=== PATIENT | male | born 1955 | race American Indian/Alaskan Native ===

== ENCOUNTER 2017-04-10 01:09 | Emergency (ER) | payer MEDICARE ==
[2017-04-10 02:50] LABS: Basophils % (Auto) 0.9 % (0.0-1.8); Eosinophils % (Auto) 0.7 % (0.0-4.3); Hematocrit 40.5 % (35.5-45.6); Hemoglobin 13.8 gm/dl (11.8-15.2); Mean Corpuscular HGB Conc 34 % (32-34); Mean Corpuscular Hemoglobin 30 pg (28-32); Mean Corpuscular Volume 88 fl (84-94); Platelet Count 215 K/mm3 (140-440); Red Blood Count 4.58 M/mm3 (3.65-5.03); Red Cell Distribution Width 15.1 % (13.2-15.2); White Blood Count 6.3 K/mm3 (4.5-11.0)
[2017-04-10 03:07] LABS: Alanine Aminotransferase 12 units/L (7-56); Albumin 4.2 g/dL (3.9-5); Albumin/Globulin Ratio 1.2 %; Alkaline Phosphatase 76 units/L (35-129); Anion Gap 17 mmol/L; BUN/Creatinine Ratio 14.54; Blood Urea Nitrogen 16 mg/dL (9-20); Calcium 9.4 mg/dL (8.4-10.2); Carbon Dioxide 25 mmol/L (22-30); Chloride 98.8 mmol/L (98-107); Glucose 107 mg/dL (75-100); Potassium 4.1 mmol/L (3.6-5.0); Sodium 137 mmol/L (137-145); Total Protein 7.6 g/dL (6.3-8.2)
[2017-04-10 09:27] LABS: Bilirubin,Urine NEG (Negative); Blood,Urine MOD (Negative); Ketones,Urine NEG (Negative); Leukocyte Esterase,Urine NEG (Negative); Nitrite,Urine NEG (Negative); Protein,Urine <15 mg/dL mg/dL (Negative); Urobilinogen,Urine < 2.0 mg/dL (<2.0)
[2017-04-10 09:47] LABS: Urine Drugs of Abuse Note Disclamer
[2017-04-10 10:00] LABS: Bacteria,Urine 1+ /HPF (Negative)
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
[2017-04-10] MEDS ORDERED: ATIVAN IM PRN (13:49)
[2017-04-10] MEDS ORDERED: HALDOL IM PRN (13:49)
[2017-04-10] MEDS ORDERED: BENADRYL IM PRN (13:49)
[2017-04-10] MEDS ORDERED: BACTRIM DS PO SCH (14:00)
[2017-04-10 16:55] VITALS: BP 146/96
== END 2017-04-10 20:39 ==
LOC: ED 01:09
DX: F20.9 Schizophrenia, unspecified (principal); N39.0 Urinary tract infection, site not specified; F19.10 Other psychoactive substance abuse, uncomplicated; I10 Essential (primary) hypertension
CPT/HCPCS: 36415; 80053; 80307; 81001; 84443; 85025; 99285

== ENCOUNTER 2017-11-27 02:37 | Emergency (ER) | payer MEDICARE ==
[2017-11-27 03:32] LABS: Basophils % (Auto) 0.8 % (0.0-1.8); Eosinophils # (Auto) 0.1 K/mm3 (0.0-0.4); Eosinophils % (Auto) 1.3 % (0.0-4.3); Hematocrit 40.2 % (35.5-45.6); Hemoglobin 13.8 gm/dl (11.8-15.2); Lymphocytes % (Auto) 39.3 % (13.4-35.0); Mean Corpuscular HGB Conc 34 % (32-34); Mean Corpuscular Hemoglobin 31 pg (28-32); Mean Corpuscular Volume 89 fl (84-94); Monocytes # (Auto) 0.5 K/mm3 (0.0-0.8); Monocytes % (Auto) 9.4 % (0.0-7.3); Platelet Count 201 K/mm3 (140-440)
[2017-11-27 04:06] LABS: Bilirubin,Urine NEG (Negative); Blood,Urine SM (Negative); Color,Urine Yellow (Yellow); Protein,Urine <15 mg/dL mg/dL (Negative)
[2017-11-27 04:20] LABS: WBC,Urine < 1.0 /HPF (0.0-6.0)
[2017-11-27 04:20] LABS: Amphetamine Screen,Urine PRESUMPTIVE NEGATIVE; Benzodiazepines Screen,Urine PRESUMPTIVE NEGATIVE; Cannabinoid Screen,Urine PRESUMPTIVE NEGATIVE; Methadone Screen,Urine PRESUMPTIVE NEGATIVE; Opiate Screen,Urine PRESUMPTIVE NEGATIVE
[2017-11-27 04:27] LABS: BUN/Creatinine Ratio 18; Blood Urea Nitrogen 16 mg/dL (9-20); Hemolysis Index 2
[2017-11-27 04:40] LABS: Cocaine Screen,Urine PRESUMPTIVE POSITIVE
--- NOTE | 2017-11-27 10:49 | Emergency Department Report ---
ED Psych HPI - General Chief Complaint: Psych Stated Complaint: MH Time Seen by Provider: 11/27/17 10:38 Source: patient, EMS Mode of arrival: Ambulatory - History of Present Illness Initial Comments: Patient is 62 years old male history of schizophrenia and hypertension presented to the ER for evaluation of hearing voices asking him to kill himself and do bad things like stealing. Patient denied any visual hallucination and homicidal ideation. Patient stated that last time he took his medication was a few months ago. He also stated that he has been using cocaine marijuana and alcohol. MD Complaint: suicidal ideation -: days(s) Associated Psychiatric Symptoms: suicidal ideation, racing thoughts, auditory hallucinations History of same: Yes Quality: constant Associated Symptoms: denies other symptoms Treatments Prior to Arrival: none If Self Harm: admits thoughts of - Related Data Previous Rx's Medication Instructions Recorded Last Taken Type Sulfamethoxazole/Trimethoprim 1 each PO BID #20 tablet 04/10/17 Unknown Rx [Bactrim DS TAB] Allergies Allergy/AdvReac Type Severity Reaction Status Date / Time Unable to Assess Allergy Unverified 08/23/16 13:07 ED Review of Systems ROS: Stated complaint: MH Other details as noted in HPI Comment: All other systems reviewed and negative Constitutional: denies: chills, fever Respiratory: denies: cough, orthopnea, shortness of breath, SOB with exertion Cardiovascular: denies: chest pain, palpitations, dyspnea on exertion Gastrointestinal: denies: abdominal pain, nausea, vomiting, diarrhea Musculoskeletal: denies: back pain Neurological: denies: headache, weakness, numbness, paresthesias ED Past Medical Hx - Past Medical History Previous Medical History?: Yes Hx Hypertension: Yes Hx Psychiatric Treatment: Yes (schziophrenia) - Surgical History Past Surgical History?: No - Social History Smoking Status: Current Every Day Smoker Substance Use Type: None - Medications Home Medications: Home Medications Medication Instructions Recorded Confirmed Last Taken Type Sulfamethoxazole/Trimethoprim 1 each PO BID #20 tablet 04/10/17 Unknown Rx [Bactrim DS TAB] ED Physical Exam - General Limitations: No Limitations General appearance: alert, in no apparent distress - Head Head exam: Present: atraumatic, normocephalic, normal inspection - Eye Eye exam: Present: normal appearance, PERRL Pupils: Present: normal accommodation - ENT ENT exam: Present: normal exam, normal orophraynx, mucous membranes moist - Neck Neck exam: Present: normal inspection, full ROM. Absent: tenderness, meningismus, lymphadenopathy - Respiratory Respiratory exam: Present: normal lung sounds bilaterally. Absent: respiratory distress, wheezes, rales, rhonchi, stridor, chest wall tenderness, accessory muscle use, decreased breath sounds, prolonged expiratory - Cardiovascular Cardiovascular Exam: Present: regular rate, normal rhythm, normal heart sounds - GI/Abdominal GI/Abdominal exam: Present: soft, normal bowel sounds. Absent: distended, tenderness, guarding, rebound, rigid, organomegaly, mass, bruit, pulsatile mass , hernia - Extremities Exam Extremities exam: Present: normal inspection, full ROM, normal capillary refill - Back Exam Back exam: Present: normal inspection, full ROM. Absent: tenderness, CVA tenderness (R), CVA tenderness (L), muscle spasm, paraspinal tenderness - Neurological Exam Neurological exam: Present: alert, oriented X3, CN II-XII intact, normal gait - Psychiatric Psychiatric exam: Present: normal mood, suicidal ideation - Skin Skin exam: Present: warm, intact, normal color. Absent: cyanosis ED Course Vital Signs 11/27/17 02:48 Temperature 97.4 F L Pulse Rate 59 L Respiratory 18 Rate Blood Pressure 170/103 O2 Sat by Pulse 98 Oximetry ED Medical Decision Making - Lab Data Result diagrams: 11/27/17 02:56 11/27/17 02:56 Critical care attestation.: If time is entered above; I have spent that time in minutes in the direct care of this critically ill patient, excluding procedure time. ED Disposition Clinical Impression: Acute psychosis, Suicidal ideation Disposition: DC/TX-65 PSY HOSP/PSY UNIT Is pt being admited?: No Condition: Stable Referrals: PRIMARY CARE, [Primary Care Provider] - 3-5 Days
[2017-11-28 08:41] VITALS: BP 142/91
--- NOTE | 2017-11-28 12:39 | Consultation ---
History of Present Illness - Reason for Consult Consult date: 11/28/17 Reason for consult: Mental Health Evaluation Requesting physician: EV NELSON - Chief Complaint Chief complaint: "The voices are to much" - History of Present Psychiatric Illness 62 years old male history of schizophrenia and hypertension presented to the ER for evaluation of hearing voices. Today the patient is calm and cooperative during the assessment. He stated hearing voices telling him all types of "things." He stated that they were telling him to kill himself yesterday, but denies being suicidal when asked. He stated that the voices kept him from sleeping last night. He stated that he has a hx of schizophrenia and receive the monthly Haldol injection from [facility]. He stated that he feared that something would happen to him yesterday, so he came to the hospital. He denies SI/HI's and VH's. He denies erratic sleep and a poor appetite. He admitted to using cocaine often. He denies excessive alcohol consumption (etoh). Medications and Allergies Allergies Allergy/AdvReac Type Severity Reaction Status Date / Time haloperidol [From Haldol] AdvReac Dizziness Verified 11/27/17 19:13 Home Medications Medication Instructions Recorded Confirmed Last Taken Type Sulfamethoxazole/Trimethoprim 1 each PO BID #20 tablet 04/10/17 Unknown Rx [Bactrim DS TAB] Past psychiatric history - Past Medical History Past Medical History: hypertension Past Surgical History: No surgical history - past Psychiatric treatment and history Psych: Schizophrenia psychiatric treatment history: Multiple inpatient psy settings. He denies a fam psy hx. - Social History Social history: lives with family Mental Status Exam - Vital signs Last Vital Signs Temp 98.7 F 11/28/17 08:40 Pulse 100 H 11/28/17 08:40 Resp 16 11/28/17 08:40 BP 142/91 11/28/17 08:40 Pulse Ox 95 11/28/17 08:40 - Exam Narrative exam: MSE: Appearance: calm, cooperative, disheveled Behavior: regular eye contact Speech: regular rate and tone Mood: "fine" Affect: congruent to mood Thought Process: circumstantial Thought Content: denies SI/HI's and VH's, paranoia Motor Activity: lying in bed Cognition: A/O x3 Insight: variable Judgment: variable Results Result Diagrams: 11/27/17 02:56 11/27/17 02:56 All other labs normal. Assessment and Plan Assessment and plan: Impression: Hx of Schizophrenia per the patient. Substance Use DO (cocaine). Today the patient is calm and cooperative during the assessment. DDx; R/O Bipolar DO, R/O Schizoaffective DO, R/O Substance Induced Psy DO Recommendation/Plan: Continue 1013 with placement to [facility] today.
== END 2017-11-28 14:07 ==
LOC: EEVIPCON 02:37 → ED 02:37
DX: F20.9 Schizophrenia, unspecified (principal); I10 Essential (primary) hypertension; F17.200 Nicotine dependence, unspecified, uncomplicated; Z88.8 Allergy status to other drugs, medicaments and biological substances; Z79.899 Other long term (current) drug therapy
CPT/HCPCS: 36415; 80048; 80307; 81001; 85025; 99285; G0480; 80320; 99284

== ENCOUNTER 2018-01-31 21:55 | Emergency (ER) | payer MEDICARE ==
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
[2018-01-31 23:22] LABS: Bilirubin,Urine NEG (Negative); Blood,Urine NEG (Negative); Calcium Oxalate Crystals,Urine 1+; Color,Urine Yellow (Yellow); Mucus,Urine 3+ /HPF
[2018-01-31 23:32] LABS: Amphetamine Screen,Urine PRESUMPTIVE NEGATIVE; Benzodiazepines Screen,Urine PRESUMPTIVE NEGATIVE; Cannabinoid Screen,Urine PRESUMPTIVE NEGATIVE; Methadone Screen,Urine PRESUMPTIVE NEGATIVE; Opiate Screen,Urine PRESUMPTIVE NEGATIVE
[2018-01-31 23:34] LABS: Basophils % (Auto) 0.8 % (0.0-1.8); Eosinophils # (Auto) 0.1 K/mm3 (0.0-0.4); Eosinophils % (Auto) 1.4 % (0.0-4.3); Hematocrit 37.3 % (35.5-45.6); Hemoglobin 12.4 gm/dl (11.8-15.2); Lymphocytes # (Auto) 1.8 K/mm3 (1.2-5.4); Lymphocytes % (Auto) 45.7 % (13.4-35.0); Mean Corpuscular HGB Conc 33 % (32-34); Mean Corpuscular Hemoglobin 31 pg (28-32); Mean Corpuscular Volume 92 fl (84-94); Monocytes # (Auto) 0.4 K/mm3 (0.0-0.8); Monocytes % (Auto) 11.2 % (0.0-7.3); Platelet Count 204 K/mm3 (140-440); Red Blood Count 4.07 M/mm3 (3.65-5.03); Red Cell Distribution Width 15.7 % (13.2-15.2)
[2018-01-31 23:55] LABS: Alanine Aminotransferase 10 units/L (7-56); Albumin 3.7 g/dL (3.9-5); BUN/Creatinine Ratio 17; Blood Urea Nitrogen 17 mg/dL (9-20); Calcium 8.8 mg/dL (8.4-10.2); Hemolysis Index 7
[2018-02-01 00:04] LABS: Cocaine Screen,Urine PRESUMPTIVE POSITIVE
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
[2018-02-01 15:32] VITALS: BP 143/83
== END 2018-02-01 14:30 ==
LOC: ED 21:55 → EEVIPCON 21:55 → ED 02-01 14:30
DX: F20.9 Schizophrenia, unspecified (principal); I10 Essential (primary) hypertension; F17.200 Nicotine dependence, unspecified, uncomplicated; Z88.8 Allergy status to other drugs, medicaments and biological substances; Z79.899 Other long term (current) drug therapy
CPT/HCPCS: 36415; 80053; 80307; 81001; 85025; 99285; G0480; 80320

== ENCOUNTER 2018-10-30 16:14 | Emergency (ER) | payer MEDICARE ==
--- NOTE | 2018-10-30 18:42 | Emergency Department Report ---
Blank Doc - Documentation Documentation: 63 y.o. male presents to ED for medication refills. Incarcerated for 7 months and off medication for 1 month. denies new symptoms, SI/HI Hx of schizophrenia and HTN PLAN: [facility] Fast track for evaluation.
[2018-10-30 19:11] LABS: Basophils # (Auto) 0.1 K/mm3 (0.0-0.1); Eosinophils % (Auto) 0.5 % (0.0-4.3); Hematocrit 42.5 % (35.5-45.6); Hemoglobin 14.3 gm/dl (11.8-15.2); Lymphocytes # (Auto) 1.9 K/mm3 (1.2-5.4); Lymphocytes % (Auto) 34.5 % (13.4-35.0); Mean Corpuscular HGB Conc 34 % (32-34); Mean Corpuscular Volume 91 fl (84-94); Monocytes # (Auto) 0.6 K/mm3 (0.0-0.8); Monocytes % (Auto) 10.2 % (0.0-7.3); Platelet Count 249 K/mm3 (140-440); Red Blood Count 4.67 M/mm3 (3.65-5.03); Red Cell Distribution Width 16.8 % (13.2-15.2)
--- NOTE | 2018-10-31 01:46 | Emergency Department Report ---
ED Medical Clearance HPI - General Chief complaint: Medical Clearance Stated complaint: OUT OF MEDICATIONS Time Seen by Provider: 10/30/18 18:34 Source: patient, EMS Mode of arrival: Ambulatory - History of Present Illness Initial comments: This Is a 62-year-old gentleman who has a history of psychosis, hypertension, currently takes Norvasc, 5 mg daily, clonidine, 0.1 mg, Haldol, Prozac, who presents tonight for medication refills bp at this time is 145/98 pt denies symptoms no headache no dizziness no lightheadedness no n/v no cp no sob no suicidality no homicicality , pt is a/ox 3 ambulatory with steady gait. pt seen in ed on 09/11/2019 for same, but has not follow up with pcp to this point. Onset/Timin -: week(s) Reason for Medical Clearance: psychiatric condition (hx schizophrenia ) Alledged Intoxication: No Compliant with Home Medications: No Traumatic Symptoms: denies traumatic injury Treatments Prior to Arrival: none Home medications: Home Medications Medication Instructions Recorded Confirmed Last Taken Benztropine [Cogentin] 0.5 mg PO BID 09/12/18 09/12/18 09/12/18 09:00 FLUoxetine HCL [Prozac] 20 mg PO QAM 09/12/18 09/12/18 09/12/18 09:00 Norvasc 5 mg PO QAM 09/12/18 09/12/18 09/12/18 09:00 cloNIDine [Catapres] 0.1 mg PO PRN PRN 09/12/18 09/12/18 09/12/18 12:50 Previous Rx's Medication Instructions Recorded Last Taken Type amLODIPine [Norvasc] 5 mg PO DAILY #3 tab 10/31/18 Unknown Rx Allergies/Adverse reactions: Allergies Allergy/AdvReac Type Severity Reaction Status Date / Time haloperidol [From Haldol] AdvReac Dizziness Verified 11/27/17 19:13 ED Review of Systems ROS: Stated complaint: OUT OF MEDICATIONS Other details as noted in HPI Constitutional: denies: chills, fever Eyes: denies: eye pain, eye discharge, vision change ENT: denies: ear pain, throat pain Respiratory: denies: cough, shortness of breath, wheezing Cardiovascular: denies: chest pain, palpitations Endocrine: no symptoms reported Gastrointestinal: denies: abdominal pain, nausea, diarrhea Genitourinary: denies: urgency, dysuria Musculoskeletal: denies: back pain, joint swelling, arthralgia Skin: denies: rash, lesions Neurological: denies: headache, weakness, paresthesias Psychiatric: denies: anxiety, depression Hematological/Lymphatic: denies: easy bleeding, easy bruising ED Past Medical Hx - Past Medical History Hx Hypertension: Yes Hx Psychiatric Treatment: Yes (schziophrenia) - Surgical History Past Surgical History?: No - Social History Smoking Status: Never Smoker Substance Use Type: Alcohol - Medications Home Medications: Home Medications Medication Instructions Recorded Confirmed Last Taken Type Benztropine [Cogentin] 0.5 mg PO BID 09/12/18 09/12/18 09/12/18 09:00 History FLUoxetine HCL [Prozac] 20 mg PO QAM 09/12/18 09/12/18 09/12/18 09:00 History Norvasc 5 mg PO QAM 09/12/18 09/12/18 09/12/18 09:00 History cloNIDine [Catapres] 0.1 mg PO PRN PRN 09/12/18 09/12/18 09/12/18 12:50 History amLODIPine [Norvasc] 5 mg PO DAILY #3 tab 10/31/18 Unknown Rx ED Physical Exam - General Limitations: No Limitations General appearance: alert, in no apparent distress - Head Head exam: Present: atraumatic, normocephalic - Eye Eye exam: Present: normal appearance - ENT ENT exam: Present: mucous membranes moist - Neck Neck exam: Present: normal inspection - Respiratory Respiratory exam: Present: normal lung sounds bilaterally. Absent: respiratory distress - Cardiovascular Cardiovascular Exam: Present: regular rate, normal rhythm. Absent: systolic murmur, diastolic murmur, rubs, gallop - GI/Abdominal GI/Abdominal exam: Present: soft, normal bowel sounds - Rectal Rectal exam: Present: deferred - Extremities Exam Extremities exam: Present: normal inspection - Back Exam Back exam: Present: normal inspection - Neurological Exam Neurological exam: Present: alert, oriented X3 - Psychiatric Psychiatric exam: Present: normal affect, normal mood. Absent: homicidal clarke ation, suicidal ideation - Skin Skin exam: Present: warm, dry, intact, normal color. Absent: rash ED Course Vital Signs 10/30/18 10/30/18 17:34 18:34 Temperature 98.1 F 98.1 F Pulse Rate 75 75 Respiratory 16 16 Rate Blood Pressure 145/98 Blood Pressure 145/98 [Left] O2 Sat by Pulse 100 96 Oximetry ED Medical Decision Making - Lab Data Result diagrams: 10/30/18 18:50 - Medical Decision Making This Is a 62-year-old gentleman who has a history of psychosis, hypertension, currently takes Norvasc, 5 mg daily, clonidine, 0.1 mg, Haldol, Prozac, who presents tonight for medication refills bp at this time is 145/98 pt denies symptoms no headache no dizziness no lightheadedness no n/v no cp no sob no suicidality no homicicality , pt is a/ox 3 ambulatory with steady gait. states he has not been able to see pcp or psychiatry, will refer to [facility] for pcp affiliation , and [facility] for Psych medication refills as he is asymptomatic today ED Disposition Clinical Impression: Medication refill Disposition: DC-01 TO HOME OR SELFCARE Is pt being admited?: No Does the pt Need Aspirin: No Condition: Stable Prescriptions: amLODIPine [Norvasc] 5 mg PO DAILY #3 tab Referrals: [facility] [Outside] - 24 Hours [facility] [Outside] - 24 Hours Forms: Work/School Release Form(ED) Time of Disposition: 01:56
[2018-10-31] MEDS ORDERED: NORVASC PO ONE (01:55)
[2018-10-31 02:20] VITALS: BP 158/111
== END 2018-10-31 02:36 | disposition home or self-care (01) ==
LOC: ED 16:14
DX: Z76.0 Encounter for issue of repeat prescription (principal); F20.9 Schizophrenia, unspecified; I10 Essential (primary) hypertension; Z88.8 Allergy status to other drugs, medicaments and biological substances
CPT/HCPCS: 36415; 85025

== ENCOUNTER 2019-08-12 22:57 | Emergency (ER) | payer MEDICARE ==
[2019-08-12 23:45] LABS: Basophils % (Auto) 0.7 % (0.0-1.8); Eosinophils % (Auto) 0.5 % (0.0-4.3); Hematocrit 39.3 % (35.5-45.6); Hemoglobin 13.5 gm/dl (11.8-15.2); Lymphocytes # (Auto) 1.5 K/mm3 (1.2-5.4); Lymphocytes % (Auto) 31.8 % (13.4-35.0); Mean Corpuscular HGB Conc 34 % (32-34); Mean Corpuscular Volume 91 fl (84-94); Monocytes # (Auto) 0.4 K/mm3 (0.0-0.8); Monocytes % (Auto) 9.6 % (0.0-7.3); Red Blood Count 4.34 M/mm3 (3.65-5.03); Red Cell Distribution Width 15.6 % (13.2-15.2)
[2019-08-13 00:01] LABS: Platelet Count 302 K/mm3 (140-440)
[2019-08-13 00:08] LABS: BUN/Creatinine Ratio 14; Blood Urea Nitrogen 11 mg/dL (9-20); Hemolysis Index 12
[2019-08-13] MEDS ORDERED: LORazepam 2 MG/ML VIAL IM PRN (01:24)
[2019-08-13] MEDS ORDERED: ZIPRASIDONE MESYLATE 20 MG VIAL IM PRN (01:24)
[2019-08-13] MEDS ORDERED: SODIUM CHLORIDE 0.9% 1000 ML 1,000 ML IV ONE (01:24)
[2019-08-13] MEDS ORDERED: SODIUM CHLORIDE 0.9% 1000 ML 2,000 ML IV ONE ×2 (01:24→02:01)
--- NOTE | 2019-08-13 01:25 | Emergency Department Report ---
ED Psych HPI - General Chief Complaint: Psych Stated Complaint: MH EVALUATION Time Seen by Provider: 08/13/19 00:41 Source: patient, family, RN notes reviewed Mode of arrival: Ambulatory Limitations: Other (the patient is disorganized and appears to be psychotic. The patient appears to be responding to internal stimuli) - History of Present Illness Initial Comments: This is a 63-year-old gentleman with a history of psychiatric disease and hypertension. He is brought to the hospital by his sister for psychiatric evaluation. The patient has reportedly been off of his haloperidol injectable medication for about 2 months as per his sister. She reports the patient has been missing around 2 weeks, and she's been looking for him constantly. She re ports that she found him wandering on the streets. She reports that he is speaking with a gravelly voice, which she typically does when he becomes psychotic. The patient denies physical pain. The patient lacks decision-making capacity at this time. As far as the sister knows, there is no history of trauma. Symptoms have been constant, and so far, do not have exacerbating or relieving factors that anyone is aware of, with the exception of the patient remain compliant with his psychiatric medications. His sister has reason to believe that the patient is using drugs. MD Complaint: other Quality: other Improves With: medication Worsens With: none Context: not taking psychiatric Associated Symptoms: denies other symptoms Treatments Prior to Arrival: other If Self Harm: other - Related Data Home Medications Medication Instructions Recorded Confirmed Last Taken Benztropine [Cogentin] 0.5 mg PO BID 09/12/18 08/13/19 09/12/18 09:00 FLUoxetine HCL [Prozac] 20 mg PO QAM 09/12/18 08/13/19 09/12/18 09:00 Norvasc 5 mg PO QAM 09/12/18 08/13/19 09/12/18 09:00 cloNIDine [Catapres] 0.1 mg PO PRN PRN 09/12/18 08/13/19 09/12/18 12:50 Previous Rx's Medication Instructions Recorded Last Taken Type amLODIPine 5 mg PO DAILY #3 tab 10/31/18 Unknown Rx Allergies Allergy/AdvReac Type Severity Reaction Status Date / Time haloperidol [From Haldol] AdvReac Dizziness Verified 11/27/17 19:13 ED Review of Systems ROS: Stated complaint: MH EVALUATION Other details as noted in HPI Comment: Unobtainable due to pts medical conditions ED Past Medical Hx - Past Medical History Hx Hypertension: Yes Hx Psychiatric Treatment: Yes (paranoid schizophrenia) - Surgical History Past Surgical History?: No - Social History Smoking Status: Never Smoker - Medications Home Medications: Home Medications Medication Instructions Recorded Confirmed Last Taken Type Benztropine [Cogentin] 0.5 mg PO BID 09/12/18 08/13/19 09/12/18 09:00 History FLUoxetine HCL [Prozac] 20 mg PO QAM 09/12/18 08/13/19 09/12/18 09:00 History Norvasc 5 mg PO QAM 09/12/18 08/13/19 09/12/18 09:00 History cloNIDine [Catapres] 0.1 mg PO PRN PRN 09/12/18 08/13/19 09/12/18 12:50 History amLODIPine 5 mg PO DAILY #3 tab 10/31/18 08/13/19 Unknown Rx ED Physical Exam - General Limitations: Other (the patient is psychotic and a poor historian) General appearance: in no apparent distress, anxious - Head Head exam: Present: atraumatic, normocephalic - Eye Eye exam: Present: normal appearance, PERRL, EOMI. Absent: nystagmus - ENT ENT exam: Present: normal exam, normal orophraynx, mucous membranes moist, normal external ear exam - Neck Neck exam: Present: normal inspection, full ROM. Absent: tenderness, meningismus - Respiratory Respiratory exam: Present: normal lung sounds bilaterally. Absent: respiratory distress - Cardiovascular Cardiovascular Exam: Present: regular rate, normal rhythm, normal heart sounds. Absent: bradycardia, tachycardia, irregular rhythm, systolic murmur, diastolic murmur, rubs, gallop - GI/Abdominal GI/Abdominal exam: Present: soft. Absent: distended, tenderness, guarding, rebound, rigid, pulsatile mass - Rectal Rectal exam: Present: deferred - Extremities Exam Extremities exam: Present: normal inspection, full ROM, other (2+ pulses noted in the bilateral upper, lower extremities. There is no long bone tenderness. Musculoskeletal compartments are soft. The pelvis is stable.). Absent: pedal edema, calf tenderness - Back Exam Back exam: Present: normal inspection, full ROM. Absent: tenderness, CVA tenderness (R), CVA tenderness (L), paraspinal tenderness, vertebral tenderness - Neurological Exam Neurological exam: Present: alert (patient alert to name and year. Patient is disorganized.), normal gait, other (there is no facial droop. The tongue is mid line. Extraocular movements are intact bilaterally. Patient speaking in full complete sentences. Shoulder shrug is intact bilaterally. Hearing is grossly intact bilaterally. Visual acuity intact to finger counting and color perception at a close distance. 5/5 strength 4 extremities. Sensation intact to light touch in 4 extremities.). Absent: motor sensory deficit - Psychiatric Psychiatric exam: Present: agitated - Skin Skin exam: Present: warm, dry, intact, normal color. Absent: rash ED Course Vital Signs 08/12/19 08/12/19 08/13/19 23:01 23:03 00:40 Temperature 97.7 F 97.7 F 97.5 F L Pulse Rate 88 73 91 H Respiratory 18 18 18 Rate Blood Pressure 172/108 172/108 Blood Pressure 152/110 [Left] O2 Sat by Pulse 100 99 99 Oximetry - Reevaluation(s) Reevaluation #1: 08/13/19 05:03 ck downtrending no acute distress ED Medical Decision Making - Lab Data Result diagrams: 08/12/19 23:15 08/12/19 23:15 Vital Signs 08/12/19 08/12/19 08/13/19 23:01 23:03 00:40 Temperature 97.7 F 97.7 F 97.5 F L Pulse Rate 88 73 91 H Respiratory 18 18 18 Rate Blood Pressure 172/108 172/108 Blood Pressure 152/110 [Left] O2 Sat by Pulse 100 99 99 Oximetry Lab Results 08/12/19 08/12/19 08/12/19 Range/Units 23:15 23:15 23:15 WBC (4.5-11.0) K/mm3 RBC (3.65-5.03) M/mm3 Hgb (11.8-15.2) gm/dl Hct (35.5-45.6) % MCV (84-94) fl MCH (28-32) pg MCHC (32-34) % RDW (13.2-15.2) % Plt Count (140-440) K/mm3 Lymph % (Auto) (13.4-35.0) % [place] % (Auto) (0.0-7.3) % Eos % (Auto) (0.0-4.3) % Baso % (Auto) (0.0-1.8) % Lymph # (1.2-5.4) K/mm3 [place] # (0.0-0.8) K/mm3 Eos # (0.0-0.4) K/mm3 Baso # (0.0-0.1) K/mm3 Seg Neutrophils % (40.0-70.0) % Seg Neutrophils # (1.8-7.7) K/mm3 Sodium 135 L (137-145) mmol/L Potassium 4.2 (3.6-5.0) mmol/L Chloride 95.2 L (98-107) mmol/L Carbon Dioxide 25 (22-30) mmol/L Anion Gap 19 mmol/L BUN 11 (9-20) mg/dL Creatinine 0.8 (0.8-1.5) mg/dL Estimated GFR > 60 ml/min BUN/Creatinine Ratio 14 % Glucose 118 H (75-100) mg/dL Calcium 9.0 (8.4-10.2) mg/dL Total Creatine Kinase (55-170) units/L Salicylates < 0.3 L (2.8-20.0) mg/dL Acetaminophen < 5.0 L (10.0-30.0) ug/mL Plasma/Serum Alcohol (0-0.07) % 08/12/19 08/12/19 08/13/19 Range/Units 23:15 23:15 01:00 WBC 4.6 (4.5-11.0) K/mm3 RBC 4.34 (3.65-5.03) M/mm3 Hgb 13.5 (11.8-15.2) gm/dl Hct 39.3 (35.5-45.6) % MCV 91 (84-94) fl MCH 31 (28-32) pg MCHC 34 (32-34) % RDW 15.6 H (13.2-15.2) % Plt Count 302 (140-440) K/mm3 Lymph % (Auto) 31.8 (13.4-35.0) % [place] % (Auto) 9.6 H (0.0-7.3) % Eos % (Auto) 0.5 (0.0-4.3) % Baso % (Auto) 0.7 (0.0-1.8) % Lymph # 1.5 (1.2-5.4) K/mm3 [place] # 0.4 (0.0-0.8) K/mm3 Eos # 0.0 (0.0-0.4) K/mm3 Baso # 0.0 (0.0-0.1) K/mm3 Seg Neutrophils % 57.4 (40.0-70.0) % Seg Neutrophils # 2.6 (1.8-7.7) K/mm3 Sodium (137-145) mmol/L Potassium (3.6-5.0) mmol/L Chloride (98-107) mmol/L Carbon Dioxide (22-30) mmol/L Anion Gap mmol/L BUN (9-20) mg/dL Creatinine (0.8-1.5) mg/dL Estimated GFR ml/min BUN/Creatinine Ratio % Glucose (75-100) mg/dL Calcium (8.4-10.2) mg/dL Total Creatine Kinase 1903 H (55-170) units/L Salicylates (2.8-20.0) mg/dL Acetaminophen (10.0-30.0) ug/mL Plasma/Serum Alcohol < 0.01 (0-0.07) % - Medical Decision Making Differential diagnosis, including but not limited to: Psychosis, disorganized behavior, medical clearance for psychiatric placement Assessment and plan: 63-year-old gentleman who walks with a steady gait, has no evidence of blunt physical trauma above the clavicle, with disorganized behavior, psychosis. He does respond to verbal de-escalation techniques and show of force. However, he is not able to care for himself, and collateral information obtained from family indicates that his presentation today is consistent with prior episodes of decompensated psychosis. He is placed on a 1013 hold, IV fluids ordered for CK 1900, the psychiatric consultation is requested. At this point time, the patient does not appear to have an immediate medical contraindication to psychiatric admission, evaluation, consultation and placement. CK we'll decrease on its own with IV fluids and oral hydration. Renal function is within normal limits at this time. Critical care attestation.: If time is entered above; I have spent that time in minutes in the direct care of this critically ill patient, excluding procedure time. ED Disposition Clinical Impression: Psychosis Qualifiers: Psychosis type: other Qualified Code(s): F28 - Other psychotic disorder not due to a substance or known physiological condition Disposition: DC/TX-65 PSY HOSP/PSY UNIT Is pt being admited?: No Does the pt Need Aspirin: No Condition: Good Referrals: PRIMARY CARE, [Primary Care Provider] - 3-5 Days
[2019-08-13 02:16] LABS: Bilirubin,Urine NEG (Negative); Blood,Urine SM (Negative); Color,Urine Yellow (Yellow); Protein,Urine <15 mg/dL mg/dL (Negative); WBC,Urine < 1.0 /HPF (0.0-6.0)
[2019-08-13 02:20] LABS: Amphetamine Screen,Urine PRESUMPTIVE NEGATIVE; Benzodiazepines Screen,Urine PRESUMPTIVE NEGATIVE; Cannabinoid Screen,Urine PRESUMPTIVE NEGATIVE; Cocaine Screen,Urine PRESUMPTIVE NEGATIVE; Methadone Screen,Urine PRESUMPTIVE NEGATIVE; Opiate Screen,Urine PRESUMPTIVE NEGATIVE
[2019-08-13] MEDS ORDERED: cloNIDine 0.2 MG TAB PO ONE (08:11)
[2019-08-13] MEDS ORDERED: amLODIPine 5 MG TAB PO SCH (10:00)
--- NOTE | 2019-08-13 10:24 | Consultation ---
History of Present Illness - Reason for Consult Consult date: 08/13/19 Reason for consult: Mental Health Evaluation Requesting physician: JAMES DIETRICH - Chief Complaint Chief complaint: "The patient's speech was incoherent" - History of Present Psychiatric Illness 63 y.o. AA male who presented to the ER for bizarre behavior per his sister. Today the patient was calm, but his speech was incoherent. He did answer one question stating that he receive the monthly Haldol injection. Overall, the patient is a poor historian. Medications and Allergies Allergies Allergy/AdvReac Type Severity Reaction Status Date / Time haloperidol [From Haldol] AdvReac Dizziness Verified 11/27/17 19:13 Home Medications Medication Instructions Recorded Confirmed Last Taken Type Benztropine [Cogentin] 0.5 mg PO BID 09/12/18 08/13/19 09/12/18 09:00 History FLUoxetine HCL [Prozac] 20 mg PO QAM 09/12/18 08/13/19 09/12/18 09:00 History Norvasc 5 mg PO QAM 09/12/18 08/13/19 09/12/18 09:00 History cloNIDine [Catapres] 0.1 mg PO PRN PRN 09/12/18 08/13/19 09/12/18 12:50 History amLODIPine 5 mg PO DAILY #3 tab 10/31/18 08/13/19 Unknown Rx Active Meds: Active Medications Amlodipine Besylate (Amlodipine) 5 mg PO DAILY LG Lorazepam (Ativan) 2 mg IM Q4HR PRN PRN Reason: Agitation Last Admin: 08/13/19 02:04 Dose: 2 mg Documented by: Ziprasidone (Geodon) 10 mg IM Q2H PRN PRN Reason: Agitation Last Admin: 08/13/19 02:04 Dose: 10 mg Documented by: Past psychiatric history - Past Medical History Past Medical History: other (Unable to obtain ) Past Surgical History: Other (Unable to obtain ) - past Psychiatric treatment and history psychiatric treatment history: Inpatient psy services per the record. Unable to obtain a [facility] psy hx. - Social History Social history: lives with family Mental Status Exam - Vital signs Last Vital Signs Temp 97.5 F L 08/13/19 00:40 Pulse 89 08/13/19 08:15 Resp 18 08/13/19 00:40 BP 178/117 08/13/19 08:15 Pulse Ox 99 08/13/19 00:40 - Exam Narrative exam: Unable to complete the MSE because the patient's condition. Results Result Diagrams: 08/12/19 23:15 08/12/19 23:15 Abnormal lab results 08/12/19 08/12/19 08/12/19 Range/Units 23:15 23:15 23:15 RDW (13.2-15.2) % [place] % (Auto) (0.0-7.3) % Sodium 135 L (137-145) mmol/L Chloride 95.2 L (98-107) mmol/L Glucose 118 H (75-100) mg/dL Total Creatine Kinase (55-170) units/L Salicylates < 0.3 L (2.8-20.0) mg/dL Acetaminophen < 5.0 L (10.0-30.0) ug/mL 08/12/19 08/13/19 08/13/19 Range/Units 23:15 01:00 04:04 RDW 15.6 H (13.2-15.2) % [place] % (Auto) 9.6 H (0.0-7.3) % Sodium (137-145) mmol/L Chloride (98-107) mmol/L Glucose (75-100) mg/dL Total Creatine Kinase 1903 H 1502 H (55-170) units/L Salicylates (2.8-20.0) mg/dL Acetaminophen (10.0-30.0) ug/mL All other labs normal. Assessment and Plan Assessment and plan: Impression: Today the patient was calm, but his speech was incoherent. UDS was negative. Recommendation/Plan: Continue 1013. Dispo: The patient was accepted by the 5th floor ([facility]). Staffed with Dr King Burch.
[2019-08-13 12:49] VITALS: BP 126/98
== END 2019-08-13 13:42 ==
LOC: ED 22:57
DX: F20.0 Paranoid schizophrenia (principal); I10 Essential (primary) hypertension; Z79.899 Other long term (current) drug therapy; Z88.8 Allergy status to other drugs, medicaments and biological substances
CPT/HCPCS: 36415; 80048; 80307; 81001; 82550; 82962; 85025; 96372; 99284; J2060; J3486; J7030; 80320; G0480

== ENCOUNTER 2019-08-13 10:58 | Inpatient (IN) | payer MEDICARE ==
[2019-08-13] MEDS ORDERED: cloNIDine 0.1 MG TAB PO PRN (12:36)
[2019-08-13 14:36] LABS: Chol/HDL Ratio 2.65 %
[2019-08-13] MEDS: LORazepam 2 MG/ML VIAL IM PRN (15:06)
[2019-08-13] MEDS: HALOPERIDOL LACTATE 5 MG/1 ML INJ IM PRN (15:07)
[2019-08-13] MEDS: BENZTROPINE 0.5 MG TAB PO SCH (21:11)
[2019-08-14] MEDS: LORazepam 2 MG/ML VIAL IM PRN (00:08)
[2019-08-14] MEDS: HALOPERIDOL LACTATE 5 MG/1 ML INJ IM PRN (00:09)
--- NOTE | 2019-08-14 08:22 | History and Physical Report ---
GP History & Physical - History of Present Illness Date of admission: 08/13/19 Date of Examination: 08/14/19 Reason for Admission: Impaired reality testing, Psychopathology interference, Unable to care for self Chief Complaint: Wandering the street bizzare behavior History of Present Illness: 63 year old single male admitted to the unit for wandering the street with bizarre behavior, being loud and hyperverbal. When meeting with the patient today, pt was in his room with the mattress flipped back, wiping the bed frame down with towels and rags "saying I'm going to find it. Pt had wet towels and rags all over his room floor. When asking pt what was he doing patient stated "trying to get them out of here". Pt was greeted with a good morning and he continued focused on what he was doing. Pt was then asked his reason for being here and he said that he was here for a check up. Pt states that he always hears voices, "they don't say none they just irritate me." Pt then continues by saying "I was trying to make the human voices go away." Pt stated that he does not currently take any meds at home, he comes in to receive an injection. Pt states that he is sleeping well. During the patient's evaluation he was extremely loud and hyper verbal, having a hard time staying on topic and focusing on the conversation at hand. The more questions the pt was asked the louder he became, with words slurring. Legal Status: Involuntary Patient Problems: Current Active Problems Paranoid schizophrenia (Acute) Reaction to Hospitalization: Accepting Medications and Allergies Allergies Allergy/AdvReac Type Severity Reaction Status Date / Time haloperidol [From Haldol] AdvReac Dizziness Verified 11/27/17 19:13 Home Medications Medication Instructions Recorded Confirmed Last Taken Type Benztropine [Cogentin] 0.5 mg PO BID 09/12/18 08/14/19 09/12/18 09:00 History FLUoxetine HCL [Prozac] 20 mg PO QAM 09/12/18 08/14/19 09/12/18 09:00 History cloNIDine [Catapres] 0.1 mg PO PRN PRN 09/12/18 08/14/19 09/12/18 12:50 History amLODIPine 5 mg PO DAILY #3 tab 10/31/18 08/14/19 Unknown Rx Active Meds: Active Medications Amlodipine Besylate (Amlodipine) 5 mg PO DAILY LG Benztropine Mesylate (Cogentin) 0.5 mg PO BID LG Last Admin: 08/13/19 21:11 Dose: 0.5 mg Documented by: Clonidine HCl (Catapres) 0.1 mg PO PRN PRN PRN Reason: Hypertension Fluoxetine HCl (Prozac) 20 mg PO QAM LG Haloperidol Lactate (Haldol) 5 mg IM Q6H PRN PRN Reason: Agitation Last Admin: 08/14/19 00:09 Dose: 5 mg Documented by: Lorazepam (Ativan) 2 mg IM Q6H PRN PRN Reason: Agitation Last Admin: 08/14/19 00:08 Dose: 2 mg Documented by: Substance History - Substance History Drug Use: none Hx Tobacco Use: Yes Tobacco Type: Cigarettes Alcohol Use: Yes Past psychiatric history - Past Medical History Past Medical History: hypertension, other (Bipolar, Schizophrenia) Past Surgical History: No surgical history - past Psychiatric treatment and history Psych: Bipolar, Psychosis, Schizophrenia - Social History Social history: single, Lives alone Review of Systems Psychiatric: hallucinations, paranoia, difficulties concentrating, confusion, mood swings Results - Results Labs/Vitals: Laboratory Last Values POC Glucose 128 (70-105) H 08/13/19 19:12 Hemoglobin A1c 5.6 % (4-6) 08/13/19 13:40 Triglycerides 51 mg/dL (2-149) 08/13/19 13:40 Cholesterol 117 mg/dL (50-199) 08/13/19 13:40 LDL Cholesterol Direct 66 mg/dL (50-130) 08/13/19 13:40 HDL Cholesterol 44 mg/dL (40-59) 08/13/19 13:40 Cholesterol/HDL Ratio 2.65 % 08/13/19 13:40 Last Vital Signs Temp 98.2 F 08/13/19 19:15 Pulse 59 L 08/13/19 19:16 Resp 18 08/13/19 19:15 BP 144/90 08/13/19 19:15 Pulse Ox 99 08/13/19 19:16 Physical Examination - Constitutional Vitals: Vital Signs Temp Pulse Resp BP Pulse Ox 98.2 F 59 L 18 144/90 99 08/13/19 19:15 08/13/19 19:16 08/13/19 19:15 08/13/19 19:15 08/13/19 19:16 Temperature -Last 24 Hours Temperature 98.2 F General appearance: Present: no acute distress - EENT Eyes: Present: PERRL, EOM intact ENT: hearing intact, clear oral mucosa - Neck Neck: Present: supple, normal ROM - Respiratory Respiratory effort: normal Mental Status Exam - Vital signs Last Vital Signs Temp 98.2 F 08/13/19 19:15 Pulse 59 L 08/13/19 19:16 Resp 18 08/13/19 19:15 BP 144/90 08/13/19 19:15 Pulse Ox 99 08/13/19 19:16 - Exam Orientation: time, place, person Affect: agitated Mood: congruent with affect Thought Process: Intact Perceptions: auditory, hallucinations Speech: normal rate and pattern Concentration: distractible Motor activity: agitated Level of consciousness: alert Memory: Intact Interaction: cooperative Mini mental status exam(if necessary): 24-30 Assessment and Plan - Psychiatric problem (1) Paranoid schizophrenia Current Visit: Yes Status: Acute plan to address problem: Patient will be admitted for inpatient psychiatric evaluation, medication adjustment and close monitoring The patient's behavior, mood, sleep and appetite will be closely monitored. Patient will be enrolled in individual and group therapeutic sessions and encouraged to attend. Patient will be provided with a safe and structured environment. Patient's physical health needs will be addressed by the Hospitalist. Social Assessment will be completed and the Peer Counselor will work with patient and family to ensure a suitable and safe disposition Medication adjustment will be made as clinically indicated The patient agreed on the treatment plan, understood the risk, benefit, alternative treatment, potential consequence of no treatment, and gave informed consent. Physician Certification - Certification Statement Physician Certification Statement: This is an acknowledgement statement that STELLA RINCON is a 63 year old M who requires inpatient psychiatric admission for treatment which could reasonably be expected to improve the patient's condition for Schizophrenia Estimated period of time patient will need to remain in the hospital: 7 days Plan for post-hospital care: Out-patient care
[2019-08-14] MEDS: BENZTROPINE 0.5 MG TAB PO SCH ×2 (09:52→21:49)
[2019-08-14] MEDS: amLODIPine 5 MG TAB PO SCH (09:52)
[2019-08-14] MEDS: FLUoxetine 20 MG CAP PO SCH (09:52)
[2019-08-14] MEDS: HALOPERIDOL 2 MG TAB PO SCH ×2 (13:18→21:49)
--- NOTE | 2019-08-14 15:17 | History and Physical Report ---
History of Present Illness Date of examination: 08/14/19 Date of admission: 08/13/19 13:19 Chief complaint: Consult for medical management History of present illness: Patient is a 63-year-old -[place] male with history of hypertension was admitted to the psych unit for abnormal behavior. Consult was placed for medical management. He denies chest pain, shortness of breath, cough, headaches, nausea, vomiting, fever, chills or dizziness. No abdominal pain, constipation, diarrhea or bleeding from any orifice. Past History Past Medical History: hypertension, other (Bipolar, Schizophrenia) Past Surgical History: Other (left foot and right hand surgery) Social history: single, Lives alone Family history: other (patient reported hypertension and diabetes in multiple family members) Medications and Allergies Allergies Allergy/AdvReac Type Severity Reaction Status Date / Time haloperidol [From Haldol] AdvReac Dizziness Verified 11/27/17 19:13 Home Medications Medication Instructions Recorded Confirmed Last Taken Type Benztropine [Cogentin] 0.5 mg PO BID 09/12/18 08/13/19 09/12/18 09:00 History FLUoxetine HCL [Prozac] 20 mg PO QAM 09/12/18 08/13/19 09/12/18 09:00 History cloNIDine [Catapres] 0.1 mg PO PRN PRN 09/12/18 08/13/19 09/12/18 12:50 History amLODIPine 5 mg PO DAILY #3 tab 10/31/18 08/13/19 Unknown Rx Active Meds: Active Medications Amlodipine Besylate (Amlodipine) 5 mg PO DAILY [facility] Last Admin: 08/14/19 09:52 Dose: 5 mg Documented by: Benztropine Mesylate (Cogentin) 0.5 mg PO BID [facility] Last Admin: 08/14/19 09:52 Dose: 0.5 mg Documented by: Clonidine HCl (Catapres) 0.1 mg PO PRN PRN PRN Reason: Hypertension Fluoxetine HCl (Prozac) 20 mg PO QAM [facility] Last Admin: 08/14/19 09:52 Dose: 20 mg Documented by: Haloperidol (Haldol) 2 mg PO BID [facility] Last Admin: 08/14/19 13:18 Dose: 2 mg Documented by: Haloperidol Lactate (Haldol) 5 mg IM Q6H PRN PRN Reason: Agitation Last Admin: 08/14/19 00:09 Dose: 5 mg Documented by: Lorazepam (Ativan) 2 mg IM Q6H PRN PRN Reason: Agitation Last Admin: 08/14/19 00:08 Dose: 2 mg Documented by: Review of Systems All systems: negative (all other systems reviewed with the patient and are neg u nless otherwise stated above) Exam - Constitutional Vitals: Temp Pulse Resp BP Pulse Ox 98.1 F 65 16 159/91 99 08/14/19 09:03 08/14/19 09:52 08/14/19 09:03 08/14/19 09:52 08/14/19 09:03 General appearance: Present: no acute distress, well-nourished - EENT Eyes: Present: PERRL, EOM intact ENT: hearing intact, clear oral mucosa - Neck Neck: Present: supple, normal ROM - Respiratory Respiratory effort: normal Respiratory: bilateral: CTA - Cardiovascular Rhythm: regular Heart Sounds: Present: S1 & S2. Absent: rub, click - Extremities Extremities: pulses symmetrical, No edema - Abdominal General gastrointestinal: Present: soft, non-tender, non-distended, normal bowel sounds Male genitourinary: Present: deferred - Integumentary Integumentary: Present: clear, warm, dry - Musculoskeletal Musculoskeletal: gait normal, strength equal bilaterally - Psychiatric Psychiatric: cooperative - Neurologic Neurologic: CNII-XII intact, moves all extremities Results - Labs Labs: Laboratory Last Values POC Glucose 128 (70-105) H 08/13/19 19:12 Hemoglobin A1c 5.6 % (4-6) 08/13/19 13:40 Triglycerides 51 mg/dL (2-149) 08/13/19 13:40 Cholesterol 117 mg/dL (50-199) 08/13/19 13:40 LDL Cholesterol Direct 66 mg/dL (50-130) 08/13/19 13:40 HDL Cholesterol 44 mg/dL (40-59) 08/13/19 13:40 Cholesterol/HDL Ratio 2.65 % 08/13/19 13:40 Assessment and Plan Assessment and plan: Hypertension -cont home meds Bipolar disorder/schizophrenia -Mgx per psych team Time spent: 35 minutes Thank you for the consult, please call for any questions
--- NOTE | 2019-08-15 07:33 | Progress Note ---
Subjective Date of service: 08/15/19 Principal diagnosis: Schizophrenia Paranoia Subjective Comment: Pt discovered wandering up and down the hallway with tissue stuffed in his ears talking to himself, loudly and cursing. When approaching the patient by greeting him with a "good morning" patient asked "who are you? where are you from" and a response was provided to his question. Patient then go on to say he is talking to his friend Daniel Brown. Patient was then asked why did he have tissue stuffed and his ears and he stated "I am trying to block out the voices they just keep on damn talking to me". Patient them continued to pace back and forth, having a conversation with himself laughing, and arguing with himself. Patient requested a double portion for breakfast stating he need some more food to eat. Per zahiraing notes: Patient is alert and oriented to person place, patient was irritable during the night, and verbally aggressive. When meds were due patient yelled at fiction and nonfiction writer prose when bedtime medication was offered to him, he stated to the fiction and nonfiction writer prose," get out of here, I don't want any medication", he isolated himself, patient is not compliant with bedtime medication. Patient consumed 100% of bedtime snacks. patient continue to raise his bed to high position, staff has adjusted his bed several times to lower position, and lock the bed. Patient continued to unlock the bed throughout the night and kept it to high position, fiction and nonfiction writer prose explained to patient that his bedtime need to be at low position for safety, he refused to follow instruction, and said , " LEAVE ME ALONE I WANT MY BED UP", patient was looking for objects and stating that he was going to kill the staff. patient requires no prn at this time, patient slept 3 hours during the night, no distress noted. Objective - Criteria for Continued Treatment Criteria for Continued Treatment: Reducing Isolative Behaviors - Mental Status Mental Status: Alert - Objective Observation Participation Level: Minimal Reason(s) For Not Participating: Behaviors, Wandering Assessment and Plan - Patient Problems (1) Paranoid schizophrenia Current Visit: Yes Status: Acute Plan to address problem: Patient will be admitted for inpatient psychiatric evaluation, medication adjustment and close monitoring The patient's behavior, mood, sleep and appetite will be closely monitored. Patient will be enrolled in individual and group therapeutic sessions and encouraged to attend. Patient will be provided with a safe and structured environment. Patient's physical health needs will be addressed by the Hospitalist. Social Assessment will be completed and the Machine Cage Maker will work with patient and family to ensure a suitable and safe disposition Medication adjustment will be made as clinically indicated Will increase Haldol and add IM back up The patient agreed on the treatment plan, understood the risk, benefit, alternative treatment, potential consequence of no treatment, and gave informed consent. Medications and Allergies Allergies Allergy/AdvReac Type Severity Reaction Status Date / Time haloperidol [From Haldol] AdvReac Dizziness Verified 11/27/17 19:13 Home Medications Medication Instructions Recorded Confirmed Last Taken Type Benztropine [Cogentin] 0.5 mg PO BID 09/12/18 08/14/19 09/12/18 09:00 History FLUoxetine HCL [Prozac] 20 mg PO QAM 09/12/18 08/14/19 09/12/18 09:00 History cloNIDine [Catapres] 0.1 mg PO PRN PRN 09/12/18 08/14/19 09/12/18 12:50 History amLODIPine 5 mg PO DAILY #3 tab 10/31/18 08/14/19 Unknown Rx Active Meds: Active Medications Amlodipine Besylate (Amlodipine) 5 mg PO DAILY [facility] Last Admin: 08/14/19 09:52 Dose: 5 mg Documented by: Benztropine Mesylate (Cogentin) 0.5 mg PO BID [facility] Last Admin: 08/14/19 21:49 Dose: Not Given Documented by: Clonidine HCl (Catapres) 0.1 mg PO PRN PRN PRN Reason: Hypertension Fluoxetine HCl (Prozac) 20 mg PO QAM [facility] Last Admin: 08/14/19 09:52 Dose: 20 mg Documented by: Haloperidol (Haldol) 2 mg PO BID [facility] Last Admin: 08/14/19 21:49 Dose: Not Given Documented by: Haloperidol Lactate (Haldol) 5 mg IM Q6H PRN PRN Reason: Agitation Last Admin: 08/14/19 00:09 Dose: 5 mg Documented by: Lorazepam (Ativan) 2 mg IM Q6H PRN PRN Reason: Agitation Last Admin: 08/14/19 00:08 Dose: 2 mg Documented by: Results - Results Labs/Vitals: Laboratory Last Values POC Glucose 128 (70-105) H 08/13/19 19:12 Hemoglobin A1c 5.6 % (4-6) 08/13/19 13:40 Triglycerides 51 mg/dL (2-149) 08/13/19 13:40 Cholesterol 117 mg/dL (50-199) 08/13/19 13:40 LDL Cholesterol Direct 66 mg/dL (50-130) 08/13/19 13:40 HDL Cholesterol 44 mg/dL (40-59) 08/13/19 13:40 Cholesterol/HDL Ratio 2.65 % 08/13/19 13:40 Last Vital Signs Temp 97.9 F 08/14/19 20:00 Pulse 62 08/14/19 20:00 Resp 18 08/14/19 20:00 BP 167/99 08/14/19 20:00 Pulse Ox 98 08/14/19 20:00
[2019-08-15] MEDS: HALOPERIDOL 2 MG TAB PO SCH ×2 (10:15→21:37)
[2019-08-15] MEDS: BENZTROPINE 0.5 MG TAB PO SCH ×2 (10:15→21:37)
[2019-08-15] MEDS: amLODIPine 5 MG TAB PO SCH (10:15)
[2019-08-15] MEDS: FLUoxetine 20 MG CAP PO SCH (10:15)
[2019-08-15] MEDS: traZODone 50 MG TAB PO SCH (21:37)
[2019-08-16] MEDS: LORazepam 2 MG/ML VIAL IM PRN (02:03)
[2019-08-16] MEDS: HALOPERIDOL 2 MG TAB PO SCH (09:41)
[2019-08-16] MEDS: amLODIPine 5 MG TAB PO SCH (09:41)
[2019-08-16] MEDS: BENZTROPINE 0.5 MG TAB PO SCH ×2 (09:41→21:45)
[2019-08-16] MEDS: FLUoxetine 20 MG CAP PO SCH (09:41)
--- NOTE | 2019-08-16 13:46 | Progress Note ---
Subjective Date of service: 08/16/19 Principal diagnosis: Schizophrenia Paranoia Subjective Comment: Patient continues to be disorganized, psychotic and agitated. He endorses distressing auditory hallucinations and paranoia. He denies SI/HI. Per krishna notes: patient is alert and oriented x's 2. patient is bizarre and isolates himself from his peers. patient appears to be pre-occupied and is seen laughing inappropriately. patient is irritable, loud, and curses when approached by staff. patient isolates himself in his room, where staff hears him yelling aloud. when staff enters room, he will curse staff members to get out. patient is suspicious with medications, asking what they were and being selective at first. after philip encouragement, patient took his medications and is currently compliant. he has a good appetite. angry affect. good affect. ambulates independently. will continue to monitor for safety.. Objective - Criteria for Continued Treatment Criteria for Continued Treatment: Improving Level of Functioning, Reducing Isolative Behaviors, Stablizing Level of Functioning, Improving Emotional/Socia - Objective Observation Participation Level: Minimal Reason(s) For Not Participating: Not Interested Assessment and Plan - Patient Problems (1) Paranoid schizophrenia Current Visit: Yes Status: Acute Plan to address problem: Patient will be admitted for inpatient psychiatric evaluation, medication adjustment and close monitoring The patient's behavior, mood, sleep and appetite will be closely monitored. Patient will be enrolled in individual and group therapeutic sessions and encouraged to attend. Patient will be provided with a safe and structured environment. Patient's physical health needs will be addressed by the Hospitalist. Social Assessment will be completed and the Microbial Specialist will work with patient and family to ensure a suitable and safe disposition Medication adjustment will be made as clinically indicated The patient agreed on the treatment plan, understood the risk, benefit, alternative treatment, potential consequence of no treatment, and gave informed consent. Medications and Allergies Allergies Allergy/AdvReac Type Severity Reaction Status Date / Time haloperidol [From Haldol] AdvReac Dizziness Verified 11/27/17 19:13 Home Medications Medication Instructions Recorded Confirmed Last Taken Type Benztropine [Cogentin] 0.5 mg PO BID 09/12/18 08/14/19 09/12/18 09:00 History FLUoxetine HCL [Prozac] 20 mg PO QAM 09/12/18 08/14/19 09/12/18 09:00 History cloNIDine [Catapres] 0.1 mg PO PRN PRN 09/12/18 08/14/19 09/12/18 12:50 History amLODIPine 5 mg PO DAILY #3 tab 10/31/18 08/14/19 Unknown Rx Active Meds: Active Medications Amlodipine Besylate (Amlodipine) 5 mg PO DAILY [facility] Last Admin: 08/16/19 09:41 Dose: 5 mg Documented by: Benztropine Mesylate (Cogentin) 0.5 mg PO BID [facility] Last Admin: 08/16/19 09:41 Dose: 0.5 mg Documented by: Clonidine HCl (Catapres) 0.1 mg PO PRN PRN PRN Reason: Hypertension Fluoxetine HCl (Prozac) 20 mg PO QAM [facility] Last Admin: 08/16/19 09:41 Dose: 20 mg Documented by: Haloperidol (Haldol) 2 mg PO BID [facility] Last Admin: 08/16/19 09:41 Dose: 2 mg Documented by: Haloperidol Lactate (Haldol) 5 mg IM Q6H PRN PRN Reason: Agitation Last Admin: 08/14/19 00:09 Dose: 5 mg Documented by: Lorazepam (Ativan) 2 mg IM Q6H PRN PRN Reason: Agitation Last Admin: 08/16/19 02:03 Dose: 2 mg Documented by: Trazodone HCl (Desyrel) 50 mg PO QHS [facility] Last Admin: 08/15/19 21:37 Dose: 50 mg Documented by: Results - Results Labs/Vitals: Laboratory Last Values POC Glucose 128 (70-105) H 08/13/19 19:12 Hemoglobin A1c 5.6 % (4-6) 08/13/19 13:40 Triglycerides 51 mg/dL (2-149) 08/13/19 13:40 Cholesterol 117 mg/dL (50-199) 08/13/19 13:40 LDL Cholesterol Direct 66 mg/dL (50-130) 08/13/19 13:40 HDL Cholesterol 44 mg/dL (40-59) 08/13/19 13:40 Cholesterol/HDL Ratio 2.65 % 08/13/19 13:40 Last Vital Signs Temp 97.3 F L 08/15/19 09:34 Pulse 52 L 08/16/19 09:41 Resp 18 08/15/19 09:34 BP 168/107 08/16/19 09:41 Pulse Ox 98 08/15/19 09:34 Mental Status Exam - Vital signs Last Vital Signs Temp 97.3 F L 08/15/19 09:34 Pulse 52 L 08/16/19 09:41 Resp 18 08/15/19 09:34 BP 168/107 08/16/19 09:41 Pulse Ox 98 08/15/19 09:34 - Exam Orientation: place, person Affect: agitated Mood: congruent with affect Thought content: delusions, paranoia Thought Process: Disorganized Perceptions: auditory, hallucinations Speech: rapid Concentration: distractible Motor activity: agitated Level of consciousness: alert Memory: Intact Appetite: increased Interaction: hostile, irritable, uncooperative
[2019-08-16] MEDS: traZODone 50 MG TAB PO SCH (21:45)
[2019-08-16] MEDS: HALOPERIDOL 5 MG TAB PO SCH (21:45)
[2019-08-17] MEDS: FLUoxetine 20 MG CAP PO SCH (10:52)
[2019-08-17] MEDS: HALOPERIDOL 5 MG TAB PO SCH ×2 (10:52→21:09)
[2019-08-17] MEDS: BENZTROPINE 0.5 MG TAB PO SCH ×2 (10:53→21:09)
[2019-08-17] MEDS: amLODIPine 5 MG TAB PO SCH (10:53)
--- NOTE | 2019-08-17 14:19 | Progress Note ---
Subjective Date of service: 08/17/19 Principal diagnosis: Schizophrenia Paranoia Subjective Comment: Patient continues to be disorganized, psychotic and agitated. He endorses distressing auditory hallucinations and paranoia. He denies SI/HI. Per nuring notes: Pt is compliant with routine meds. He continues to pace and is responding to internal stimuli talking to unseen others but denies AH. Pt remains easily irritable and hyperreligious. Pt was up most of the night reading his bible an moving around in his room. No prn medication needed as he was able to be redirected and is focused on his discharge. Still paranoid and suspicious when staff approaches. Original Note: Pt is observed pacing with his blanket, he is a/o x 4 mood and affect is irritable and is unwilling to respond to redirection. He is isolative and withdrawn but no aggressive behavior issues. Will continue to monitor q 15 min for safety. . Objective - Criteria for Continued Treatment Criteria for Continued Treatment: Improving Level of Functioning, Stablizing Level of Functioning, Improving Emotional/Socia - Mental Status Mental Status: Alert - Objective Observation Participation Level: Minimal Reason(s) For Not Participating: Wandering Assessment and Plan - Patient Problems (1) Paranoid schizophrenia Current Visit: Yes Status: Acute Plan to address problem: Patient will be admitted for inpatient psychiatric evaluation, medication adjustment and close monitoring The patient's behavior, mood, sleep and appetite will be closely monitored. Patient will be enrolled in individual and group therapeutic sessions and encouraged to attend. Patient will be provided with a safe and structured environment. Patient's physical health needs will be addressed by the Hospitalist. Social Assessment will be completed and the Topology Teacher will work with patient and family to ensure a suitable and safe disposition Medication adjustment will be made as clinically indicated The patient agreed on the treatment plan, understood the risk, benefit, alternative treatment, potential consequence of no treatment, and gave informed consent. Medications and Allergies Allergies Allergy/AdvReac Type Severity Reaction Status Date / Time haloperidol [From Haldol] AdvReac Dizziness Verified 11/27/17 19:13 Home Medications Medication Instructions Recorded Confirmed Last Taken Type Benztropine [Cogentin] 0.5 mg PO BID 09/12/18 08/14/19 09/12/18 09:00 History FLUoxetine HCL [Prozac] 20 mg PO QAM 09/12/18 08/14/19 09/12/18 09:00 History cloNIDine [Catapres] 0.1 mg PO PRN PRN 09/12/18 08/14/19 09/12/18 12:50 History amLODIPine 5 mg PO DAILY #3 tab 10/31/18 08/14/19 Unknown Rx Active Meds: Active Medications Amlodipine Besylate (Amlodipine) 5 mg PO DAILY [facility] Last Admin: 08/17/19 10:53 Dose: 5 mg Documented by: Benztropine Mesylate (Cogentin) 0.5 mg PO BID [facility] Last Admin: 08/17/19 10:53 Dose: 0.5 mg Documented by: Clonidine HCl (Catapres) 0.1 mg PO PRN PRN PRN Reason: Hypertension Fluoxetine HCl (Prozac) 20 mg PO QAM [facility] Last Admin: 08/17/19 10:52 Dose: 20 mg Documented by: Haloperidol (Haldol) 5 mg PO BID [facility] Last Admin: 08/17/19 10:52 Dose: 5 mg Documented by: Haloperidol Lactate (Haldol) 5 mg IM Q6H PRN PRN Reason: Agitation Last Admin: 08/14/19 00:09 Dose: 5 mg Documented by: Lorazepam (Ativan) 2 mg IM Q6H PRN PRN Reason: Agitation Last Admin: 08/16/19 02:03 Dose: 2 mg Documented by: Trazodone HCl (Desyrel) 50 mg PO QHS [facility] Last Admin: 08/16/19 21:45 Dose: 50 mg Documented by: Results - Results Labs/Vitals: Laboratory Last Values POC Glucose 128 (70-105) H 08/13/19 19:12 Hemoglobin A1c 5.6 % (4-6) 08/13/19 13:40 Triglycerides 51 mg/dL (2-149) 08/13/19 13:40 Cholesterol 117 mg/dL (50-199) 08/13/19 13:40 LDL Cholesterol Direct 66 mg/dL (50-130) 08/13/19 13:40 HDL Cholesterol 44 mg/dL (40-59) 08/13/19 13:40 Cholesterol/HDL Ratio 2.65 % 08/13/19 13:40 Last Vital Signs Temp 97.9 F 08/17/19 09:22 Pulse 71 08/17/19 10:53 Resp 16 08/17/19 10:00 BP 165/109 08/17/19 10:53 Pulse Ox 98 08/17/19 10:00
[2019-08-17] MEDS: traZODone 50 MG TAB PO SCH (21:09)
[2019-08-18] MEDS: amLODIPine 5 MG TAB PO SCH (09:31)
[2019-08-18] MEDS: HALOPERIDOL 5 MG TAB PO SCH (09:31)
[2019-08-18] MEDS: FLUoxetine 20 MG CAP PO SCH (09:31)
[2019-08-18] MEDS: BENZTROPINE 0.5 MG TAB PO SCH ×2 (09:31→21:25)
--- NOTE | 2019-08-18 13:03 | Progress Note ---
Subjective Date of service: 08/18/19 Principal diagnosis: Schizophrenia Paranoia Subjective Comment: Patient continues to be disorganized, psychotic and agitated. He endorses distressing auditory hallucinations and paranoia. He denies SI/HI. . Assessment and Plan - Patient Problems (1) Paranoid schizophrenia Current Visit: Yes Status: Acute Medications and Allergies Allergies Allergy/AdvReac Type Severity Reaction Status Date / Time haloperidol [From Haldol] AdvReac Dizziness Verified 11/27/17 19:13 Home Medications Medication Instructions Recorded Confirmed Last Taken Type Benztropine [Cogentin] 0.5 mg PO BID 09/12/18 08/14/19 09/12/18 09:00 History FLUoxetine HCL [Prozac] 20 mg PO QAM 09/12/18 08/14/19 09/12/18 09:00 History cloNIDine [Catapres] 0.1 mg PO PRN PRN 09/12/18 08/14/19 09/12/18 12:50 History amLODIPine 5 mg PO DAILY #3 tab 10/31/18 08/14/19 Unknown Rx Active Meds: Active Medications Amlodipine Besylate (Amlodipine) 5 mg PO DAILY [facility] BEDS AT [facility] Last Admin: 08/18/19 09:31 Dose: 5 mg Documented by: Benztropine Mesylate (Cogentin) 0.5 mg PO BID [facility] 234 BEDS AT [facility] Last Admin: 08/18/19 09:31 Dose: 0.5 mg Documented by: Clonidine HCl (Catapres) 0.1 mg PO PRN PRN PRN Reason: Hypertension Fluoxetine HCl (Prozac) 20 mg PO QAM [facility] 234 BEDS [facility] Last Admin: 08/18/19 09:31 Dose: 20 mg Documented by: Haloperidol (Haldol) 5 mg PO BID [facility] 234 BEDS AT [facility] Last Admin: 08/18/19 09:31 Dose: 5 mg Documented by: Haloperidol Lactate (Haldol) 5 mg IM Q6H PRN PRN Reason: Agitation Last Admin: 08/14/19 00:09 Dose: 5 mg Documented by: Lorazepam (Ativan) 2 mg IM Q6H PRN PRN Reason: Agitation Last Admin: 08/16/19 02:03 Dose: 2 mg Documented by: Trazodone HCl (Desyrel) 50 mg PO QHS [facility] 234 BEDS [facility] Last Admin: 08/17/19 21:09 Dose: 50 mg Documented by: Results - Results Labs/Vitals: Laboratory Last Values POC Glucose 128 (70-105) H 08/13/19 19:12 Hemoglobin A1c 5.6 % (4-6) 08/13/19 13:40 Triglycerides 51 mg/dL (2-149) 08/13/19 13:40 Cholesterol 117 mg/dL (50-199) 08/13/19 13:40 LDL Cholesterol Direct 66 mg/dL (50-130) 08/13/19 13:40 HDL Cholesterol 44 mg/dL (40-59) 08/13/19 13:40 Cholesterol/HDL Ratio 2.65 % 08/13/19 13:40 Last Vital Signs Temp 99.2 F 08/17/19 22:00 Pulse 70 08/18/19 09:31 Resp 18 08/17/19 22:00 BP 148/97 08/18/19 09:31 Pulse Ox 99 08/17/19 22:00 Mental Status Exam - Vital signs Last Vital Signs Temp 97.9 F 08/18/19 09:39 Pulse 57 L 08/18/19 21:24 Resp 16 08/18/19 09:39 BP 195/111 08/18/19 21:24 Pulse Ox 97 08/18/19 09:39 - Exam Orientation: place, person Affect: agitated Mood: congruent with affect Thought content: paranoia Thought Process: Disorganized Perceptions: auditory, hallucinations Speech: normal rate and pattern Concentration: unable to pay attention Motor activity: agitated Level of consciousness: alert Memory: Intact Appetite: increased Interaction: uncooperative
[2019-08-18] MEDS: risperiDONE 1 MG TAB PO SCH ×2 (19:26→21:25)
[2019-08-18] MEDS: traZODone 50 MG TAB PO SCH (21:25)
--- NOTE | 2019-08-19 07:35 | Progress Note ---
Subjective Date of service: 08/19/19 Principal diagnosis: Schizophrenia Paranoia Subjective Comment: Patient is calmer and more organized this morning. He states that he was getting Haldol injection 4-weekly and found it beneficial. He wants to resume the monthly injection. He endorses distressing auditory hallucinations and paranoia. He denies SI/HI. Nurses note that,Patient is alert and oriented to person and place, irritable, paces, loud with pressured speech, disorganized thought process, endorses auditory hallucination, started on risperdal 2mg po bid. First dose given at 2123 last night with other bedtime medication, he is tolerating medication and meals; clonidine 0.1mg po given at 2124 for elevated blood pressure of 195/111, pulse 57, denies SI/HI, denies visual hallucination, no aggressive behavioral issue, no distress noted. Objective - Criteria for Continued Treatment Criteria for Continued Treatment: Improving Level of Functioning, Stablizing Level of Functioning, Improving Emotional/Socia, Decreasing Frequency of Hospitalization - Mental Status Mental Status: Alert - Objective Observation Participation Level: Minimal Assessment and Plan - Patient Problems (1) Paranoid schizophrenia Current Visit: Yes Status: Acute Plan to address problem: Patient will be admitted for inpatient psychiatric evaluation, medication adjustment and close monitoring The patient's behavior, mood, sleep and appetite will be closely monitored. Patient will be enrolled in individual and group therapeutic sessions and encouraged to attend. Patient will be provided with a safe and structured environment. Patient's physical health needs will be addressed by the Hospitalist. Social Assessment will be completed and the Blue Leather Setter will work with patient and family to ensure a suitable and safe disposition Medication adjustment will be made as clinically indicated Continue Risperidone 2mg bid - started 08/18 The patient agreed on the treatment plan, understood the risk, benefit, alternative treatment, potential consequence of no treatment, and gave informed consent. Medications and Allergies Allergies Allergy/AdvReac Type Severity Reaction Status Date / Time haloperidol [From Haldol] AdvReac Dizziness Verified 11/27/17 19:13 Home Medications Medication Instructions Recorded Confirmed Last Taken Type Benztropine [Cogentin] 0.5 mg PO BID 09/12/18 08/14/19 09/12/18 09:00 History FLUoxetine HCL [Prozac] 20 mg PO QAM 09/12/18 08/14/19 09/12/18 09:00 History cloNIDine [Catapres] 0.1 mg PO PRN PRN 09/12/18 08/14/19 09/12/18 12:50 History amLODIPine 5 mg PO DAILY #3 tab 10/31/18 08/14/19 Unknown Rx Active Meds: Active Medications Amlodipine Besylate (Amlodipine) 5 mg PO DAILY [facility] Last Admin: 08/18/19 09:31 Dose: 5 mg Documented by: Benztropine Mesylate (Cogentin) 0.5 mg PO BID [facility] Last Admin: 08/18/19 21:25 Dose: 0.5 mg Documented by: Clonidine HCl (Catapres) 0.1 mg PO PRN PRN PRN Reason: Hypertension Last Admin: 08/18/19 21:24 Dose: 0.1 mg Documented by: Fluoxetine HCl (Prozac) 20 mg PO QAM [facility] Last Admin: 08/18/19 09:31 Dose: 20 mg Documented by: Haloperidol Lactate (Haldol) 5 mg IM Q6H PRN PRN Reason: Agitation Last Admin: 08/14/19 00:09 Dose: 5 mg Documented by: Lorazepam (Ativan) 2 mg IM Q6H PRN PRN Reason: Agitation Last Admin: 08/16/19 02:03 Dose: 2 mg Documented by: Risperidone (Risperdal) 2 mg PO BID [facility] Last Admin: 08/18/19 21:25 Dose: 2 mg Documented by: Trazodone HCl (Desyrel) 50 mg PO QHS [facility] Last Admin: 08/18/19 21:25 Dose: 50 mg Documented by: Results - Results Labs/Vitals: Laboratory Last Values POC Glucose 128 (70-105) H 08/13/19 19:12 Hemoglobin A1c 5.6 % (4-6) 08/13/19 13:40 Triglycerides 51 mg/dL (2-149) 08/13/19 13:40 Cholesterol 117 mg/dL (50-199) 08/13/19 13:40 LDL Cholesterol Direct 66 mg/dL (50-130) 08/13/19 13:40 HDL Cholesterol 44 mg/dL (40-59) 08/13/19 13:40 Cholesterol/HDL Ratio 2.65 % 08/13/19 13:40 Last Vital Signs Temp 97.5 F L 08/19/19 00:19 Pulse 57 L 08/18/19 21:24 Resp 20 08/19/19 00:19 BP 195/111 08/18/19 21:24 Pulse Ox 99 08/19/19 00:19
[2019-08-19] MEDS: amLODIPine 5 MG TAB PO SCH (09:54)
[2019-08-19] MEDS: BENZTROPINE 0.5 MG TAB PO SCH ×2 (09:54→21:24)
[2019-08-19] MEDS: risperiDONE 1 MG TAB PO SCH ×2 (09:54→21:24)
[2019-08-19] MEDS: FLUoxetine 20 MG CAP PO SCH (09:54)
[2019-08-19] MEDS: traZODone 50 MG TAB PO SCH (21:24)
--- NOTE | 2019-08-20 08:42 | Progress Note ---
Subjective Date of service: 08/20/19 Principal diagnosis: Schizophrenia Paranoia Subjective Comment: Patient is calmer and more organized this morning. He states that he was getting Haldol injection 4-weekly and found it beneficial. He wants to resume the monthly injection. He endorses distressing auditory hallucinations and paranoia. He denies SI/HI. Patient presented in a pleasant mood, patient greeted the physican with a "good morning" and stated that his mood is good. Patient only concern was being discharged and going home with his sister tomorrow. Patient stated that he is receiving hadol injection 1x per month in shoulder. Patient denies auditory hallucination, denies paranoia, denies SI/HI/AVH. 08/20/19 Per nurses note, Patient had no behavioral issued during the night, patient slept well, hes eating well. Patient is interacting amongst his peers, mood is good, patient singing and dancing to music, med complaint. MSE Orientation: Alert Affect: Hyperverbal Mood: congruent with affect Thought Process: organized Perceptions: none Speech: slurred Concentration: focused Motor activity: normal Level of consciousness: alert Memory: Impaired Interaction: moderate Objective - Criteria for Continued Treatment Criteria for Continued Treatment: Improving Level of Functioning - Mental Status Mental Status: Oriented x [address] - Objective Observation Participation Level: Moderate Assessment and Plan - Patient Problems (1) Paranoid schizophrenia Current Visit: Yes Status: Acute Plan to address problem: Patient will be admitted for inpatient psychiatric evaluation, medication adjustment and close monitoring The patient's behavior, mood, sleep and appetite will be closely monitored. Patient will be enrolled in individual and group therapeutic sessions and encouraged to attend. Patient will be provided with a safe and structured environment. Patient's physical health needs will be addressed by the Hospitalist. Social Assessment will be completed and the [employer] will work with patient and family to ensure a suitable and safe disposition Medication adjustment will be made as clinically indicated Continue Risperidone 2mg bid - started 08/18 Will Start Haldol 50mg qmo Possible discharge in am tomorrow The patient agreed on the treatment plan, understood the risk, benefit, alternative treatment, potential consequence of no treatment, and gave informed consent. Medications and Allergies Allergies Allergy/AdvReac Type Severity Reaction Status Date / Time haloperidol [From Haldol] AdvReac Dizziness Verified 11/27/17 19:13 Home Medications Medication Instructions Recorded Confirmed Last Taken Type Benztropine [Cogentin] 0.5 mg PO BID 09/12/18 08/14/19 09/12/18 09:00 History FLUoxetine HCL [Prozac] 20 mg PO QAM 09/12/18 08/14/19 09/12/18 09:00 History cloNIDine [Catapres] 0.1 mg PO PRN PRN 09/12/18 08/14/19 09/12/18 12:50 History amLODIPine 5 mg PO DAILY #3 tab 10/31/18 08/14/19 Unknown Rx Active Meds: Active Medications Amlodipine Besylate (Amlodipine) 5 mg PO DAILY [facility] Last Admin: 08/19/19 09:54 Dose: 5 mg Documented by: Benztropine Mesylate (Cogentin) 0.5 mg PO BID [facility] Last Admin: 08/19/19 21:24 Dose: 0.5 mg Documented by: Clonidine HCl (Catapres) 0.1 mg PO PRN PRN PRN Reason: Hypertension Last Admin: 08/18/19 21:24 Dose: 0.1 mg Documented by: Fluoxetine HCl (Prozac) 20 mg PO QAM [facility] Last Admin: 08/19/19 09:54 Dose: 20 mg Documented by: Haloperidol Lactate (Haldol) 5 mg IM Q6H PRN PRN Reason: Agitation Last Admin: 08/14/19 00:09 Dose: 5 mg Documented by: Lorazepam (Ativan) 2 mg IM Q6H PRN PRN Reason: Agitation Last Admin: 08/16/19 02:03 Dose: 2 mg Documented by: Risperidone (Risperdal) 2 mg PO BID [facility] Last Admin: 08/19/19 21:24 Dose: 2 mg Documented by: Trazodone HCl (Desyrel) 50 mg PO QHS [facility] Last Admin: 08/19/19 21:24 Dose: 50 mg Documented by: Results - Results Labs/Vitals: Laboratory Last Values POC Glucose 128 (70-105) H 08/13/19 19:12 Hemoglobin A1c 5.6 % (4-6) 08/13/19 13:40 Triglycerides 51 mg/dL (2-149) 08/13/19 13:40 Cholesterol 117 mg/dL (50-199) 08/13/19 13:40 LDL Cholesterol Direct 66 mg/dL (50-130) 08/13/19 13:40 HDL Cholesterol 44 mg/dL (40-59) 08/13/19 13:40 Cholesterol/HDL Ratio 2.65 % 08/13/19 13:40 Last Vital Signs Temp 98.6 F 08/19/19 19:39 Pulse 79 08/19/19 19:39 Resp 18 08/19/19 19:39 BP 133/82 08/19/19 19:39 Pulse Ox 93 08/19/19 19:39
--- NOTE | 2019-08-20 08:56 | Progress Note ---
Subjective Principal diagnosis: Schizophrenia Paranoia Assessment and Plan - Patient Problems (1) Paranoid schizophrenia Current Visit: Yes Status: Acute Medications and Allergies Allergies Allergy/AdvReac Type Severity Reaction Status Date / Time haloperidol [From Haldol] AdvReac Dizziness Verified 11/27/17 19:13 Home Medications Medication Instructions Recorded Confirmed Last Taken Type Benztropine [Cogentin] 0.5 mg PO BID 09/12/18 08/14/19 09/12/18 09:00 History FLUoxetine HCL [Prozac] 20 mg PO QAM 09/12/18 08/14/19 09/12/18 09:00 History cloNIDine [Catapres] 0.1 mg PO PRN PRN 09/12/18 08/14/19 09/12/18 12:50 History amLODIPine 5 mg PO DAILY #3 tab 10/31/18 08/14/19 Unknown Rx Active Meds: Active Medications Amlodipine Besylate (Amlodipine) 5 mg PO DAILY [facility] Last Admin: 08/19/19 09:54 Dose: 5 mg Documented by: Benztropine Mesylate (Cogentin) 0.5 mg PO BID [facility] Last Admin: 08/19/19 21:24 Dose: 0.5 mg Documented by: Clonidine HCl (Catapres) 0.1 mg PO PRN PRN PRN Reason: Hypertension Last Admin: 08/18/19 21:24 Dose: 0.1 mg Documented by: Fluoxetine HCl (Prozac) 20 mg PO QAM [facility] Last Admin: 08/19/19 09:54 Dose: 20 mg Documented by: Haloperidol Lactate (Haldol) 5 mg IM Q6H PRN PRN Reason: Agitation Last Admin: 08/14/19 00:09 Dose: 5 mg Documented by: Lorazepam (Ativan) 2 mg IM Q6H PRN PRN Reason: Agitation Last Admin: 08/16/19 02:03 Dose: 2 mg Documented by: Risperidone (Risperdal) 2 mg PO BID [facility] Last Admin: 08/19/19 21:24 Dose: 2 mg Documented by: Trazodone HCl (Desyrel) 50 mg PO QHS [facility] Last Admin: 08/19/19 21:24 Dose: 50 mg Documented by: Results - Results Labs/Vitals: Laboratory Last Values POC Glucose 128 (70-105) H 08/13/19 19:12 Hemoglobin A1c 5.6 % (4-6) 08/13/19 13:40 Triglycerides 51 mg/dL (2-149) 08/13/19 13:40 Cholesterol 117 mg/dL (50-199) 08/13/19 13:40 LDL Cholesterol Direct 66 mg/dL (50-130) 08/13/19 13:40 HDL Cholesterol 44 mg/dL (40-59) 08/13/19 13:40 Cholesterol/HDL Ratio 2.65 % 08/13/19 13:40 Last Vital Signs Temp 98.6 F 08/19/19 19:39 Pulse 79 08/19/19 19:39 Resp 18 08/19/19 19:39 BP 133/82 08/19/19 19:39 Pulse Ox 93 08/19/19 19:39
[2019-08-20] MEDS: risperiDONE 1 MG TAB PO SCH ×2 (09:49→21:25)
[2019-08-20] MEDS: FLUoxetine 20 MG CAP PO SCH (09:50)
[2019-08-20] MEDS: amLODIPine 5 MG TAB PO SCH (09:50)
[2019-08-20] MEDS: BENZTROPINE 0.5 MG TAB PO SCH ×2 (09:50→21:25)
[2019-08-20] MEDS ORDERED: HALOPERIDOL DECANOATE 100 MG/1 ML INJ IM SCH (12:00)
[2019-08-20] MEDS: traZODone 50 MG TAB PO SCH (21:25)
[2019-08-21 09:11] VITALS: BP 159/83
[2019-08-21] MEDS: FLUoxetine 20 MG CAP PO SCH (09:12)
[2019-08-21] MEDS: amLODIPine 5 MG TAB PO SCH (09:12)
[2019-08-21] MEDS: BENZTROPINE 0.5 MG TAB PO SCH (09:12)
--- NOTE | 2019-08-21 10:06 | Discharge Summary ---
Providers - Providers Date of Admission: 08/13/19 13:19 Date of discharge: 08/21/19 Attending physician: OFELIA PARKER MD 08/15/19 07:49 Consult to Physician [CONS] Routine Comment: Consulting Provider: SCHUYLER CARL Physician Instructions: Reason For Exam: [facility] Primary care physician: FRUIT GRADER OPERATOR Hospitalization Reason for admission: Wandering the street with bizarre behavior, being loud and hyperverbal. Condition: Stable Hospital course: The patient was provided inpatient psychiatric treatment with safe and supportive environment, group therapy, individual counseling, psychiatric medication, medication adjustment, adverse effect monitor, medical evaluation, medical treatment, social service assessment, family/social support meeting, placement assessment and psycho-education. The patients mood, anxiety, thoughts, stress management skill, cognition, impulse/anger control, motivation, understanding of disease, compliance to treatment and appreciation on family/social support are improved and stabilized. At the time of discharge, the patient had no suicidal ideas, no homicidal ideas, no aggressive thoughts, no endangering behavior and no debilitating adverse effects. The patient agreed on the treatment plan, understood the risk, benefit, alternative treatment, po tential consequence of no treatment, and gave informed consent. Disposition: DC-01 TO HOME OR SELFCARE Time spent for discharge: 36 mins Allergies/Adverse Reactions: Allergies haloperidol [From Haldol] Adverse Reaction (Verified 11/27/17 19:13) Dizziness Vital Signs: Last Vital Signs Temp 32.1 F L 08/21/19 09:10 Pulse 68 08/21/19 09:12 Resp 16 08/21/19 09:10 BP 159/83 08/21/19 09:12 Pulse Ox 99 08/21/19 09:10 Last Lab: Laboratory Last Values POC Glucose 128 (70-105) H 08/13/19 19:12 Hemoglobin A1c 5.6 % (4-6) 08/13/19 13:40 Triglycerides 51 mg/dL (2-149) 08/13/19 13:40 Cholesterol 117 mg/dL (50-199) 08/13/19 13:40 LDL Cholesterol Direct 66 mg/dL (50-130) 08/13/19 13:40 HDL Cholesterol 44 mg/dL (40-59) 08/13/19 13:40 Cholesterol/HDL Ratio 2.65 % 08/13/19 13:40 - Discharge Diagnoses (1) Paranoid schizophrenia Status: Acute Core Measure Documentation - Palliative Care Palliative Care/ Comfort Measures: Not Applicable - Core Measures Any of the following diagnoses?: none Exam - Constitutional Vitals: Temp Pulse Resp BP Pulse Ox 32.1 F L 68 16 159/83 99 08/21/19 09:10 08/21/19 09:12 08/21/19 09:10 08/21/19 09:12 08/21/19 09:10 General appearance: Present: no acute distress, well-nourished - EENT Eyes: Present: PERRL, EOM intact ENT: hearing intact, clear oral mucosa - Neck Neck: Present: supple, normal ROM - Respiratory Respiratory effort: normal Plan Activity: advance as tolerated Weight Bearing Status: Weight Bear as Tolerated Care Plan Goals: Maintain good and stable mental health Plan of Treatment: Take medications as prescribed Health Concerns: None Assessment: Paranoid Schizophrenia Follow up with: PRIMARY CARE, [Primary Care Provider] - 7 Days Prescriptions: traZODone [Desyrel] 50 mg PO QHS #30 tablet Benztropine [Cogentin] 0.5 mg PO BID #60 Benztropine [Cogentin] 0.5 mg PO BID #60 tablet FLUoxetine HCL [Prozac] 20 mg PO QAM #30 cap FLUoxetine [PROzac] 20 mg PO QAM #30 capsule
[2019-08-26] MEDS ORDERED: HALOPERIDOL DECANOATE 100 MG/1 ML INJ IM SCH (10:00)
== END 2019-08-21 17:00 | disposition home or self-care (01) | DRG 885 ==
LOC: 3A 10:58 → UNDOADMIN 10:58 → 5A 13:19
PROVIDERS: ADMIT Psychiatry & Neurology Psychiatry; ATTEND Psychiatry & Neurology Psychiatry
DX: F20.0 Paranoid schizophrenia (principal); I10 Essential (primary) hypertension; F31.9 Bipolar disorder, unspecified; F17.210 Nicotine dependence, cigarettes, uncomplicated; Z60.2 Problems related to living alone; Z88.8 Allergy status to other drugs, medicaments and biological substances; Z79.899 Other long term (current) drug therapy
CPT/HCPCS: 36415; 80061; 82962; 83036; G0378; J1630; J1631; J2060